=== PATIENT | male | born 1960 | race Caucasian/White ===

== ENCOUNTER 2016-03-29 18:11 | Emergency (ER) | payer OTHER ==
[~2016-03-29] VITALS: Ht 175.3 cm; Wt 89.4 kg
[~2016-03-29 18:11] MED LIST: BACT800T5 PO; LORA10TA7 PO
[2016-03-29 18:23] VITALS: BP 149/88; PULSE 50; RESP 16; TEMP 98.5; O2SAT 98
[2016-03-29] MEDS ORDERED: LORA-361 PO (18:34)
[2016-03-29] MEDS ORDERED: FLUT1SPR5 EACH NARE (18:34)
--- NOTE | 2016-03-29 18:48 | PD ---
HPI Chief Complaint: Laceration/Skin Injury Time Seen by Provider: 18:41 Travel History International Travel<30 days: No Contact w/Intl Traveler<30days: No Traveled to known affect area: No History of Present Illness HPI 55 year-old female presents to the emergency room for evaluation of left dorsal foot laceration. Patient states he was sharpening a knife when the knife slipped out of his hand and pierced the top of his foot. He was concerned because of the amount of blood he lost. States every time he took a step, blood would leak out. He is not on blood thinners. He denies paresthesias distal to the wound but states it feels numb right around the area of the wound. Also reports pain in the area of the wound. Up-to-date on tetanus. [facility] Past Medical History Cardiovascular Problems: Yes (PT STATES WAS HIGH AT PCP THE OTHER DAY) High Cholesterol: Yes Diminished Hearing: No Musculoskeletal: Yes (herniated disc. ) Tetanus Vaccination: < 5 Years Influenza Vaccination: No ?: Not Past Surgical History Oral Surgery: Yes (grafts) Other Surgery: Yes (VASECTOMY,SEPTUM) Social History Alcohol Use: No (denies) Tobacco Use: No Substance Use: No Allergies-Medications (Allergen,Severity, Reaction): Coded Allergies: No Known Allergies (Verified , 03/29/16) Reported Meds & Prescriptions Reported Meds & Active Scripts Active Reported Claritin (Loratadine) 10 Mg Tab 10 Mg PO DAILY Flonase Allergy Relief Nasal [place] (Fluticasone Nasal [place]) 50 Mcg/Act [place] 100 Mcg EACH NARE BID Review of Systems Except as stated in HPI: all other systems reviewed are Neg Physical Exam Narrative GENERAL: Well-nourished, well-developed male in no acute distress. Afebrile. Ambulatory. SKIN: Warm and dry. There is a less than 1 cm superficial wound to the left dorsal, medial foot. Hemostasis controlled. HEAD: Normocephalic. EYES: No scleral icterus. No injection or drainage. NECK: Supple, trachea midline. No JVD or lymphadenopathy. EXTREMITY: Left foot slightly tender to palpation over the wound. Full range of motion in all joints. No edema. Less than 2 second capillary refill distally. Normal sensation intact distally. Data Data Last Documented VS Vital Signs Date Time Temp Pulse Resp B/P Pulse Ox O2 Delivery O2 Flow Rate FiO2 03/29/16 18:23 98.5 50 16 149/88 98 [facility] Medical Decision Making Medical Screen Exam Complete: Yes Emergency Medical Condition: Yes Medical Record Reviewed: Yes Differential Diagnosis Puncture wound versus abrasion versus laceration Narrative Course 55-year-old male presents to the emergency room for evaluation of left foot dorsal laceration that occurred just prior to arrival after he dropped a knife on his foot. Patient was concerned that the amount of blood loss. Physical exam reveals a less than 1 cm puncture wound to the medial, proximal, dorsal foot. Hemostasis controlled. No evidence of tendon or neurovascular injury. Less than 2 second capillary refill distally. Wound was soaked in soap and water and then repaired with Dermabond and Steri-Strips. Patient discharged with wound care instructions. Told to follow up with a primary care physician and return for worsening symptoms. He understands and agrees to plan. Diagnosis Primary Impression: Puncture wound of left foot excluding toes without complication Qualified Code: S91.332A - Puncture wound of left foot excluding toes without complication, initial encounter Referrals: Primary Care Physician Patient Instructions: General Instructions, Puncture Wound (ED) Additional Instructions: Rest and drink plenty of fluids. Keep wound clean and dry. Do not submerge underwater for extended periods of time. Glue and Steri-Strips will fall off on their own. Follow-up with a primary care physician. Return to the emergency room for worsening symptoms. Disposition: 01 DISCHARGE HOME Condition: Stable Marti Dan Mar 29, 2016 18:48
== END 2016-03-29 19:24 | disposition home or self-care (01) ==
LOC: PHEFT 18:11
DX: S91.332A Puncture wound without foreign body, left foot, initial encounter (principal); E78.00 Pure hypercholesterolemia, unspecified; W26.0XXA Contact with knife, initial encounter; Y93.89 Activity, other specified; Y92.89 Other specified places as the place of occurrence of the external cause; Y99.8 Other external cause status
CPT/HCPCS: 12001

== ENCOUNTER → 2016-06-06 | Day surgery (SDC) | payer OTHER ==
[~2016-06-06] MED LIST changes: -BACT800T5 PO; +BUPIVACAINE HCL PF 0.75% 30 ML VIAL ONE; +FLUT1SPR5 EACH NARE; +LACTATED RINGER'S 1000 ML INJ 1,000 ML ONE; +LIDOCAINE 1.5%/EPINEPHrine 1:200,000 PF SOLN 30 ML AMP ONE; +LORA-361 PO; -LORA10TA7 PO; +MIDAZOLAM HCL 5 MG/ML VIAL (1 ML) ONE; +PROPOFOL 200 MG/20 ML AMP IV ONE; +ceFAZolin 2 GM PREMIX 50 ML ONE
--- NOTE | 2016-06-10 10:15 | MP ---
cc: HUANG AGUIRRE DATE OF SURGERY: 06/06/2016 PREOPERATIVE DIAGNOSIS Left shoulder rotator cuff tear, left shoulder impingement syndrome, left shoulder labral tear. POSTOPERATIVE DIAGNOSIS Left shoulder rotator cuff tear, left shoulder impingement syndrome, left shoulder labral tear. PROCEDURE Left shoulder arthroscopic rotator cuff repair, left shoulder arthroscopic subacromial decompression, left shoulder arthroscopic extensive debridement of SLAP labral tear. SURGEON Dr. Huang Aguirre [employer] Huang Baker PA-C ANESTHESIA General with an interscalene block. ESTIMATED BLOOD LOSS Less than 10 cc. COMPLICATIONS None. IMPLANTS USED Arthrex. JUSTIFICATION The patient is a 56-year-old male who sustained an injury to his left shoulder. He has had persistent symptoms of pain and weakness in regards to his condition and failure of conservative treatment. Clinical exam as well as MRI confirmed the above-named findings. The patient was counseled as to the risks, benefits and alternatives to the above-named proposed surgical procedure. He did wish to proceed with surgery. PROCEDURE IN DETAIL Written consent was obtained. The patient was identified by name, taken to the operating room and placed supine on the operating table. General anesthesia was administered as well as 2 grams of IV Ancef. The patient was carefully turned to a right lateral decubitus position. A lateral arm roll was placed. All bony prominences and pressure points were well-padded. The patient's neck was carefully monitored and kept neutral. An arthroscopic arm gomez was gently applied to the left upper extremity with 10 pounds of traction placed. The left shoulder was prepped and draped using isopropyl alcohol, Hibiclens solution and DuraPrep solution. After a timeout was performed a standard posterior and anterior glenohumeral arthroscopic portal was established. The glenohumeral joint revealed evidence of labral tearing along the anterior, superior and posterior portions of the labrum. An arthroscopic shaver was introduced from the anterior portal and extensive debridement of the labrum was performed to include the 3 o'clock position up to the 12 o'clock position and back down to the 9 o'clock position. No significant glenohumeral joint arthritis was noted. Attention was turned to the subacromial space where there was evidence of impingement bursitis. An arthroscopic shaver was introduced from the lateral portal. A subacromial decompression was performed. The shaver used to perform an extensive bursectomy. An arthroscopic bur was used to perform an acromioplasty and the cautery device was used to release the coracoacromial ligament. There was evidence of full-thickness tear of the supraspinatus tendon with retraction. A bur was used to decorticate the greater tuberosity in preparation of rotator cuff tendon repair. At this point two Arthrex 4.75 mm Bio-SwiveLock anchors were inserted along a medial row. The Scorpion device was used to shuttle #2 FiberTape suture from both anchors to the anterior and posterior portions of the torn tendon. A #2 FiberLink suture was placed along the far anterior and a second #2 FiberLink suture was placed along the far posterior portion of the torn tendon. An Arthrex double row SpeedBridge construct was then created with implantation of a posterolateral and anterolateral anchor. After appropriate tensioning of sutures and implantation of lateral row anchors, the repair was probed and noted good stability and fixation. The arthroscopic portals were closed with 3-0 Prolene suture. Sterile dressing was applied. The patient tolerated the procedure well. No intraoperative complications were noted. Huang Baker, physician psychiatric technician assistant certified, was present during the operative procedure to include patient positioning and the procedure itself. The medical necessity of a physician psychiatric technician assistant was indicated in this case due to the complexity of the procedure. He assisted with manipulation of the arm and also manipulation of the camera. He assisted with both shuttling of sutures and also implantation of suture anchors for the purpose of rotator cuff tendon repair. MD TUYET Nur/WILLY /10:22 AM /9:59 AM
== END | disposition home or self-care (01) ==
LOC: ESDC 07:48
PROVIDERS: ATTEND Orthopaedic Surgery Sports Medicine
DX: M75.122 Complete rotator cuff tear or rupture of left shoulder, not specified as traumatic (principal); M75.42 Impingement syndrome of left shoulder; S43.432A Superior glenoid labrum lesion of left shoulder, initial encounter
CPT/HCPCS: 01630; 01991; 29823; 29826; 29827; 64417; C1713; J0690; J2250; J7120

== ENCOUNTER 2017-07-17 10:13 | Emergency (ER) | payer OTHER ==
[~2017-07-17] VITALS: Ht 175.3 cm; Wt 88.0 kg
[~2017-07-17 10:13] MED LIST changes: -BUPIVACAINE HCL PF 0.75% 30 ML VIAL ONE; -LACTATED RINGER'S 1000 ML INJ 1,000 ML ONE; -LIDOCAINE 1.5%/EPINEPHrine 1:200,000 PF SOLN 30 ML AMP ONE; -MIDAZOLAM HCL 5 MG/ML VIAL (1 ML) ONE; -PROPOFOL 200 MG/20 ML AMP IV ONE; -ceFAZolin 2 GM PREMIX 50 ML ONE
[2017-07-17 10:15] VITALS: BP 171/95; PULSE 49; RESP 17; TEMP 97.3; O2SAT 97
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
[2017-07-17] MEDS ORDERED: ACETAMINOPHEN 325 MG TAB PO ONE (11:30)
== END 2017-07-17 11:48 | disposition home or self-care (01) ==
LOC: NEPD 10:13
DX: S09.90XA Unspecified injury of head, initial encounter (principal); S00.83XA Contusion of other part of head, initial encounter; S00.531A Contusion of lip, initial encounter; E78.00 Pure hypercholesterolemia, unspecified; Y04.2XXA Assault by strike against or bumped into by another person, initial encounter; Y92.238 Other place in hospital as the place of occurrence of the external cause; Z79.899 Other long term (current) drug therapy
CPT/HCPCS: 70486; 99283

== ENCOUNTER 2017-09-12 16:53 | Observation (INO) ==
[2017-09-13] MEDS ORDERED: Acetaminophen 500 MG Tablet PO PRN (01:56)
--- NOTE | 2017-09-13 08:49 | P.PNCA ---
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 This first began when he was doing weight lifting shoulder shrugs. He has a known history of a bulging disc in the cervical spine apparently documented by Dr. Reese in known to Dr. Galo. This time when he developed the numbness he also had some left anterior chest pain that seem to be associated he subsequently had several episodes that occurred just while he was shopping. These episodes lasted for only about 30 seconds and were not associated with any additional or associated symptoms. He has been evaluated overnight to rule out ACS with negative evaluation and has had no further episodes since admission. He had orders for an evaluation underway from Dr. Galo's office but he lost his [facility] and did not complete the evaluation. He is to begin full-time employment with hospital in another week which will put him back on [facility] and he intends to follow-up with his evaluation at that time. Physical Exam Vital signs: Vital Signs 09/12/17 20:00 09/13/17 00:00 09/13/17 03:36 Temperature 98.4 F Pulse Rate 44 L 38 L 39 L Respiratory Rate 17 Blood Pressure 128/73 Pulse Oximetry 96 09/13/17 04:10 Temperature Pulse Rate 41 L Respiratory Rate Blood Pressure Pulse Oximetry Intake & Output 09/12/17 09/13/17 09/13/17 18:59 06:59 18:59 Weight 90.9 kg - Constitutional no acute distress - Routine HEENT Exam Head: Present: normocephalic, atraumatic Eye: Present: EOMI, PERRL, normal accommodation ENT: Present: mucous membranes moist - Routine Neck Exam Present: normal carotid upstroke - Routine Cardiovascular Exam Present: RRR, S1, S2, bradycardia - Routine Neurological Exam Present: alert, oriented X3, moving all extremities, normal tone - Routine Psychiatric Exam Present: normal affect, normal thought process, cooperative, good judgment Assessment and Plan - Plan Patient has had good outpatient follow-up with Dr. Galo who is aware of issues with bulging disc in his neck which is the most likely cause of his recurring episodes of left-sided weakness. He has ruled out for ACS and because of possible disc disease is not a good candidate for further cardiac testing at this time. In addition he had a negative ETT about a year ago and his current symptoms are not at all suggestive of ischemia. He will be eligible for returning to [facility] and Dr. Galo within the next week or so and has already contacted his his office to do so. He will be discharged to further follow-up on an outpatient basis for evaluation of his neurologic status and once that stable for the evaluation of his heart should that be necessary. He will be discharged in the meantime Discussed Condition With: This condition and situation were fully discussed with the patient he is cognizant of the issues particularly to avoid further irritation of his neck until he can be evaluated by Dr. Galo Discharge Planning: Discharge to follow-up with Dr. Galo. He is to avoid any weight lifting or vigorous exercise until he can be evaluated for possible neurologic issue with the cervical spine
[2017-09-13] MEDS ORDERED: Aspirin 325 MG Tablet PO SCH (09:00)
--- NOTE | 2017-09-14 00:14 | ECG ---
Date Performed: 09/12/2017 Time Performed: 23:44:28 PTAGE: 57 years EKG: SINUS BRADYCARDIA INTRAVENTRICULAR CONDUCTION DELAY ABNORMAL ECG Since the PREVIOUS TRACING , no significant change noted DOCTOR: Ernesto Harris Interpretating Date/Time 09/14/2017 00:12:22
== END 2017-09-13 15:08 | disposition home or self-care (01) ==
LOC: UNDODISOB → NEPFCDU 16:53 → NEDA 16:53 → NEPFCDU 21:20
PROVIDERS: ADMIT Internal Medicine Interventional Cardiology; ATTEND Internal Medicine Interventional Cardiology